=== PATIENT | female | born 2005 | race Caucasian/White ===

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

== ENCOUNTER 2024-04-13 09:54 | Emergency (ER) | payer BC ==
[~2024-04-13] VITALS: Ht 162.6 cm; Wt 66.0 kg
[2024-04-13] VITALS (7 sets, daily range): BP systolic 97–125; BP diastolic 62–87
[~2024-04-13 09:54] MED LIST changes: +ALLERGY RELF10 M3 PO; +PREDNISONE50 MG PO; +PROVENTIL HFA IN; +PROVENTIL0.083 % IN
[2024-04-13] MEDS ORDERED: methylPREDNISolone SODIUM SUCC 125 MG/2 ML SDV IV ONE (10:10)
[2024-04-13] MEDS ORDERED: IPRATROPIUM-Albuterol 0.5MG-2.5MG/3 ML NEB ONE ×2 (10:10)
[2024-04-13 10:34] LABS: BASO% 1.7 % (0-3); EOS% 14.9 % (0-8); HEMATOCRIT 34.5 % (37.0-47.0); HEMOGLOBIN 10.1 g/dl (12.0-16.0); IMMATURE GRANULOCYTES 0.2 % (0.0-5.0); MEAN CELL VOLUME 65.6 fL CALC (80.0-100.0); MEAN CORPUSCULAR HGB 19.2 pG CALC (26.0-32.0); MEAN CORPUSCULAR HGB CONC 29.3 g/dL CAL (32.0-36.0); MONO% 7.4 % (2-13); NEUT# 3.21 thou/uL (2.00-7.15); NEUT% 49.8 % (42-76); RED BLOOD COUNT 5.26 mill/uL (4.20-5.60); RED CELL DISTRI WIDTH 19.8 % (11.5-15.5)
[2024-04-13 10:43] LABS: ALBUMIN 4.6 g/dL (3.2-5.0); ALKALINE PHOSPHATASE 91 u/l (38-126); ANION GAP 9 (6-22 (CALC)); BUN 14 mg/dL (8-21); BUN/CREATININE RATIO 24 (12-20 (CALC)); CARBON DIOXIDE 25 mmol/l (22-30); CHLORIDE 109 mmol/l (95-108); CREATININE 0.6 mg/dL (0.5-1.0); ESTIMATED GFR 133 ML/MIN (>=90 (CALC)); POTASSIUM 4.3 mmol/l (3.5-5.1); SGOT/AST 38 u/l (14-36); SODIUM 138 mmol/l (137-146)
[2024-04-13 10:46] LABS: BILIRUBIN, TOTAL 0.6 mg/dL (0.02-1.3)
[2024-04-13] MEDS ORDERED: VENTOLIN HFA108 MCG PO (10:58)
[2024-04-13] MEDS ORDERED: IPRATROPIU0.5 MG/3 M IN (10:58)
== END 2024-04-13 11:33 | disposition home or self-care (01) | DRG 203 ==
LOC: ED 09:54
PROVIDERS: Family Medicine
DX: J45.901 Unspecified asthma with (acute) exacerbation (principal); D64.9 Anemia, unspecified

== ENCOUNTER 2024-07-29 22:33 | Emergency (ER) | payer BC ==
[~2024-07-29] VITALS: Ht 162.6 cm; Wt 62.0 kg
[~2024-07-29 22:33] MED LIST changes: +IPRATROPIU0.5 MG/3 M IN; +VENTOLIN HFA108 MCG PO
[2024-07-29 22:42] VITALS: BP 120/83
[2024-07-29] MEDS ORDERED: ALBUTEROL SULFATE 2.5 MG VIAL IN STA (22:45)
[2024-07-29] MEDS ORDERED: methylPREDNISolone SODIUM SUCC 125 MG/2 ML SDV IV STA (22:45)
[2024-07-29] MEDS ORDERED: IPRATROPIUM-Albuterol 0.5MG-2.5MG/3 ML IN STA (22:45)
[2024-07-29 23:00] VITALS: BP 115/74
[2024-07-29 23:07] LABS: BASO% 1.5 % (0-3); EOS% 20.9 % (0-8); HEMATOCRIT 33.5 % (37.0-47.0); HEMOGLOBIN 9.9 g/dl (12.0-16.0); IMMATURE GRANULOCYTES 0.2 % (0.0-5.0); LYMPH% 26.6 % (15-41); MEAN CELL VOLUME 68.6 fL CALC (80.0-100.0); MEAN CORPUSCULAR HGB 20.3 pG CALC (26.0-32.0); MEAN CORPUSCULAR HGB CONC 29.6 g/dL CAL (32.0-36.0); MONO% 11.5 % (2-13); NEUT# 2.59 thou/uL (2.00-7.15); NEUT% 39.3 % (42-76); RED BLOOD COUNT 4.88 mill/uL (4.20-5.60); RED CELL DISTRI WIDTH 18.2 % (11.5-15.5)
[2024-07-29 23:44] VITALS: BP 118/69
[2024-07-29] MEDS ORDERED: PREDNISONE50 MG PO (23:45)
[2024-07-29] MEDS ORDERED: predniSONE 20 MG/TAB PO ONE (23:45)
[2024-07-29 23:49] VITALS: BP 118/69
== END 2024-07-29 23:57 | disposition home or self-care (01) | DRG 203 ==
LOC: ED 22:33
PROVIDERS: Family Medicine
DX: J45.901 Unspecified asthma with (acute) exacerbation (principal); D64.9 Anemia, unspecified; Z20.822 Contact with and (suspected) exposure to COVID-19